=== PATIENT | female | born 1930 | race Caucasian/White ===

== ENCOUNTER 2017-11-05 19:29 | Emergency (ER) | payer OTHER ==
[~2017-11-05] VITALS: Ht 160 cm; Wt 47.7 kg
[~2017-11-05 19:29] MED LIST: ADVAIR 250/501 DISK IH; ALBUTEROL SULF8.5 GM IH; CALCIUM500 M4 PO; DAILY VITAMIN1 EAC8 PO; FISH OIL500 MG PO
[2017-11-05 20:04] LABS: HEMATOCRIT 35.4 % (36.0-46.0); HEMOGLOBIN 11.5 G/DL (11.9-15.5); MCH 31.7 PG (29.0-34.0); MCHC 32.5 G/DL (30.0-36.0); MCV 97.5 FL (83-99); PLATELET COUNT 223 K/uL (156-360); RBC DIS.WIDTH-SD 46.5 % (39-53); RED BLOOD COUNT 3.63 M/uL (3.80-5.20); WHITE BLOOD COUNT 8.5 K/uL (4.1-10.2)
[2017-11-05 20:13] LABS: CHLORIDE 104 mEq/L (99-109); POTASSIUM 4.6 mEq/L (3.7-5.4); SODIUM 139 mEq/L (136-147)
[2017-11-05 20:15] LABS: GLUCOSE 108 mg/dL (70-99)
[2017-11-05 20:19] LABS: CREATININE 1.2 mg/dL (0.6-1.3); GFR ESTIMATE (CALCULATED) 45 mL/min/
[2017-11-05 20:20] LABS: UREA NITROGEN (BUN) 24 mg/dL (9-23)
[2017-11-05 20:57] LABS: TROP-I INTERPRETATION NEGATIVE; TROPONIN-I 0.01 ng/mL (0.0-0.30)
[2017-11-05] MEDS ORDERED: TYLENOL WITH C1 EACH PO (23:42)
[2017-11-06 00:29] VITALS: BP 160/67
== END 2017-11-06 00:50 ==
LOC: EME → EDBD 19:29 → EME 19:29
DX: J45.901 Unspecified asthma with (acute) exacerbation (principal); R94.31 Abnormal electrocardiogram [ECG] [EKG]; Z90.710 Acquired absence of both cervix and uterus; Z90.49 Acquired absence of other specified parts of digestive tract
CPT/HCPCS: 71046; 80048; 84484; 85027; 93005; 99281; 99285; J1100